=== PATIENT | male | born 1955 | race Caucasian/White ===

== ENCOUNTER 2022-05-06 10:37 | Inpatient (IN) | payer OTHER ==
[2022-05-06 11:30] LABS: #Eosinphils 0.1 thou/uL (0.0-0.7); #Lymphocytes 1.1 thou/uL (1.20-3.40); #Monocytes 0.4 thou/uL (0.11-0.59); #Neutrophils 2.8 thou/uL (1.40-6.50); %Basophils 0.1 % (0.0-1.0); %Eosinophils 2.5 % (0.0-10.0); %Lymphocytes 24.4 % (21.0-51.0); %Monocytes 9.7 % (0.0-10.0); %Neutrophils 63.4 % (42.0-75.0); Hemoglobin 12.9 g/dL (14.0-18.0); Mean Corpuscular HGB CONC 33.2 g/dL (32.0-36.0); Mean Corpuscular Hemoglobin 31.7 pg (27.0-31.0); Mean Corpuscular Volume 95.7 fL (78.0-98.0); Mean Platelet Volume 6.1 fL (7.4-10.4); Platelet Count 366 thou/uL (130-400); Red Blood Cell (RBC) Count 4.06 mill/uL (4.70-6.10); White Blood Cell (WBC) Count 4.4 thou/uL (4.8-10.8)
[2022-05-06 11:45] LABS: ALT (SGPT) 22 U/L (8-55); AST (SGOT) 22 U/L (5-34); Albumin 4.2 g/dL (3.4-4.8); Alkaline Phosphatase 89 U/L (40-110); Anion Gap 18 mmol/L (10-20); BUN (Urea Nitrogen) 5 mg/dL (8.4-25.7); Bilirubin, Total 0.6 mg/dL (0.2-1.2); Calc. Creatinine Clearance 0 mL/min (70-130); Calcium 9.6 mg/dL (7.8-10.44); Carbon Dioxide 22 mmol/L (23-31); Chloride 89 mmol/L (98-107); Estimated GFR 99; Globulin 3.7 g/dL (2.4-3.5); Glucose 217 mg/dL (80-115); Potassium 3.2 mmol/L (3.5-5.1); Protein, Total 7.9 g/dL (5.8-8.1); Sodium 126 mmol/L (136-145)
[2022-05-06] MEDS ORDERED: Aspirin Chewable 81 MG TAB ONE (13:09)
[2022-05-06] MEDS ORDERED: Nitroglycerin 0.4 MG TAB (25 Tab Bottle) SL PRN (13:36)
[2022-05-06] MEDS ORDERED: Acetaminophen 325 MG TAB PO PRN (13:42)
[2022-05-06 14:30] LABS: Hemoglobin A1c 5.6 % (4.0-6.0)
[2022-05-06 14:38] LABS: Troponin I 0.025 ng/mL (< 0.028)
[2022-05-06 14:39] LABS: Anion Gap 15 mmol/L (10-20); BUN (Urea Nitrogen) 4 mg/dL (8.4-25.7); Calc. Creatinine Clearance 0 mL/min (70-130); Calcium 9.4 mg/dL (7.8-10.44); Carbon Dioxide 26 mmol/L (23-31); Chloride 91 mmol/L (98-107); Estimated GFR 103; Glucose 87 mg/dL (80-115); Potassium 3.7 mmol/L (3.5-5.1); Sodium 128 mmol/L (136-145)
[2022-05-06] MEDS ORDERED: Polyethylene Glycol 3350 17 GM Packet PO SCH (15:00)
[2022-05-06 16:17] LABS: SARS-CoV-2 NAA Rapid Test Not Detected (NotDetected)
[2022-05-06] MEDS ORDERED: hydrALAZINE 20 MG/ML VIAL SLOW IVP PRN (17:37)
[2022-05-06 17:47] LABS: Troponin I 0.025 ng/mL (< 0.028)
[2022-05-06 17:50] VITALS: BMI 24.5
[2022-05-06] MEDS: Zolpidem Tartrate 5 MG TAB PO SCH ×2 (19:36→23:48)
[2022-05-06 20:45] LABS: Anion Gap 16 mmol/L (10-20); BUN (Urea Nitrogen) 11 mg/dL (8.4-25.7); Calc. Creatinine Clearance 97 mL/min (70-130); Calcium 9.2 mg/dL (7.8-10.44); Carbon Dioxide 24 mmol/L (23-31); Chloride 91 mmol/L (98-107); Estimated GFR 100; Glucose 83 mg/dL (80-115); Potassium 3.8 mmol/L (3.5-5.1); Sodium 127 mmol/L (136-145)
[2022-05-06] MEDS ORDERED: Acetaminophen 500 MG TAB PO SCH (23:30)
[2022-05-06] MEDS ORDERED: Zolpidem Tartrate 5 MG TAB PO SCH (23:45)
[2022-05-07 05:03] LABS: ALT (SGPT) 19 U/L (8-55); AST (SGOT) 20 U/L (5-34); Albumin 3.7 g/dL (3.4-4.8); Alkaline Phosphatase 78 U/L (40-110); Anion Gap 16 mmol/L (10-20); BUN (Urea Nitrogen) 7 mg/dL (8.4-25.7); Bilirubin, Total 0.5 mg/dL (0.2-1.2); Calc. Creatinine Clearance 104 mL/min (70-130); Calcium 9.2 mg/dL (7.8-10.44); Carbon Dioxide 23 mmol/L (23-31); Cardiac Risk 3.5 (Less than 4.5); Chloride 93 mmol/L (98-107); Cholesterol 138 mg/dl (< 200 Desired); Estimated GFR 103; Globulin 3.3 g/dL (2.4-3.5); Glucose 109 mg/dL (80-115); HDL Cholesterol 39 mg/dL (>60 Neg Risk); LDL Cholesterol, Calculated 80 mg/dL; Potassium 3.2 mmol/L (3.5-5.1); Sodium 129 mmol/L (136-145); Triglycerides 96 mg/dL (Less than 150)
[2022-05-07 06:10] LABS: Eosinophils 2 % (0-10); Hemoglobin 11.8 g/dL (14.0-18.0); Lymphocytes 44 % (21-51); MDiff Complete? YES; Mean Corpuscular HGB CONC 34.2 g/dL (32.0-36.0); Mean Corpuscular Volume 96.5 fL (78.0-98.0); Mean Platelet Volume 6.2 fL (7.4-10.4); Monocytes 11 % (0-10); Neutrophil 43 % (42-75); Platelet Count 330 thou/uL (130-400); Platelet Morphology Comment Appears Adequate; RBC Morphology Normal; Red Blood Cell (RBC) Count 3.58 mill/uL (4.70-6.10)
[2022-05-07] MEDS ORDERED: Hydrochlorothiazide 25 MG TAB PO SCH (09:00)
[2022-05-07] MEDS ORDERED: Losartan 25 MG TAB PO SCH (09:00)
[2022-05-07] MEDS: Polyethylene Glycol 3350 17 GM Packet PO SCH (10:20)
[2022-05-07] MEDS: Atorvastatin Calcium 10 MG TAB PO SCH (10:20)
[2022-05-07] MEDS: Aspirin Chewable 81 MG TAB PO SCH (10:20)
[2022-05-07] MEDS: Enoxaparin Sodium 40 MG/0.4 ML SYRINGE SC SCH (10:21)
[2022-05-07] MEDS ORDERED: Regadenoson 0.4 MG/5 ML SYRINGE ONE (10:36)
[2022-05-07] MEDS ORDERED: Potassium Chloride 20 MEQ TAB PO SCH (10:45)
[2022-05-07] MEDS ORDERED: Gabapentin 300 MG CAP PO SCH (12:15)
[2022-05-07] MEDS: Amlodipine 10 MG TAB PO SCH ×2 (13:10→13:41)
[2022-05-07] MEDS: Gabapentin 300 MG CAP PO SCH ×2 (16:24→20:08)
[2022-05-07 16:51] LABS: Amphetamine Not Detected (NotDetected); Barbiturates Screen Not Detected (NotDetected); Benzodiazepine Screen Not Detected (NotDetected); Cocaine Metabolite Screen Not Detected (NotDetected); Methadone Not Detected (NotDetected); Methamphetamine Not Detected (NotDetected); Opiate Screen Not Detected (NotDetected); Oxycodone Screen Not Detected (NotDetected); Phencyclidine (PCP) Not Detected (NotDetected); THC/Cannabinoid Screen Not Detected (NotDetected); Tricyclic Screen Not Detected (NotDetected)
[2022-05-07] MEDS: Acetaminophen 500 MG TAB PO PRN (19:22)
[2022-05-07] MEDS: Zolpidem Tartrate 5 MG TAB PO SCH (20:09)
[2022-05-08] MEDS: Acetaminophen 500 MG TAB PO PRN (03:52)
[2022-05-08 07:51] LABS: Hemoglobin 12.5 g/dL (14.0-18.0); Mean Corpuscular HGB CONC 33.3 g/dL (32.0-36.0); Mean Corpuscular Hemoglobin 32.7 pg (27.0-31.0); Mean Corpuscular Volume 98.1 fL (78.0-98.0); Platelet Count 358 thou/uL (130-400); Red Blood Cell (RBC) Count 3.82 mill/uL (4.70-6.10)
[2022-05-08 08:07] LABS: Anion Gap 14 mmol/L (10-20); BUN (Urea Nitrogen) 4 mg/dL (8.4-25.7); Calc. Creatinine Clearance 96 mL/min (70-130); Calcium 9.2 mg/dL (7.8-10.44); Carbon Dioxide 25 mmol/L (23-31); Chloride 92 mmol/L (98-107); Estimated GFR 100; Glucose 142 mg/dL (80-115); Potassium 3.7 mmol/L (3.5-5.1); Sodium 127 mmol/L (136-145)
[2022-05-08] MEDS ORDERED: Amlodipine 5 MG TAB PO SCH ×2 (09:00→10:30)
[2022-05-08] MEDS ORDERED: Sodium Chloride 0.9% 500 ML IV SCH (10:15)
[2022-05-08] MEDS: Gabapentin 300 MG CAP PO SCH ×3 (10:51→19:51)
[2022-05-08] MEDS: Atorvastatin Calcium 10 MG TAB PO SCH (10:51)
[2022-05-08] MEDS: Enoxaparin Sodium 40 MG/0.4 ML SYRINGE SC SCH (10:52)
[2022-05-08] MEDS: Aspirin Chewable 81 MG TAB PO SCH (10:54)
[2022-05-08] MEDS: Polyethylene Glycol 3350 17 GM Packet PO SCH (10:54)
[2022-05-08] MEDS ORDERED: Zolpidem Tartrate 5 MG TAB PO SCH (20:15)
[2022-05-09] MEDS ORDERED: Vicks VapoRub 50 gm Jar TOP PRN (03:32)
[2022-05-09 07:03] LABS: Anion Gap 14 mmol/L (10-20); BUN (Urea Nitrogen) 6 mg/dL (8.4-25.7); Calc. Creatinine Clearance 108 mL/min (70-130); Calcium 9.4 mg/dL (7.8-10.44); Carbon Dioxide 25 mmol/L (23-31); Chloride 95 mmol/L (98-107); Estimated GFR 104; Glucose 98 mg/dL (80-115); Potassium 4.7 mmol/L (3.5-5.1); Sodium 129 mmol/L (136-145)
[2022-05-09] MEDS ORDERED: Amlodipine 5 MG TAB PO SCH (09:00)
[2022-05-09] MEDS: Atorvastatin Calcium 10 MG TAB PO SCH (10:53)
[2022-05-09] MEDS: Gabapentin 300 MG CAP PO SCH ×3 (10:54→21:15)
[2022-05-09] MEDS: Aspirin Chewable 81 MG TAB PO SCH (10:54)
[2022-05-09] MEDS: Enoxaparin Sodium 40 MG/0.4 ML SYRINGE SC SCH (10:55)
[2022-05-09] MEDS: Polyethylene Glycol 3350 17 GM Packet PO SCH (10:56)
[2022-05-09] MEDS: Zolpidem Tartrate 5 MG TAB PO SCH (21:15)
[2022-05-10 06:59] LABS: Anion Gap 12 mmol/L (10-20); BUN (Urea Nitrogen) 6 mg/dL (8.4-25.7); Calc. Creatinine Clearance 99 mL/min (70-130); Calcium 9.4 mg/dL (7.8-10.44); Carbon Dioxide 26 mmol/L (23-31); Chloride 97 mmol/L (98-107); Estimated GFR 101; Glucose 107 mg/dL (80-115); Potassium 4.3 mmol/L (3.5-5.1); Sodium 131 mmol/L (136-145)
[2022-05-10] MEDS: Atorvastatin Calcium 10 MG TAB PO SCH (09:23)
[2022-05-10] MEDS: Enoxaparin Sodium 40 MG/0.4 ML SYRINGE SC SCH (09:23)
[2022-05-10] MEDS: Aspirin Chewable 81 MG TAB PO SCH (09:23)
[2022-05-10] MEDS: Gabapentin 300 MG CAP PO SCH ×3 (09:24→21:24)
[2022-05-10] MEDS: Acetaminophen 500 MG TAB PO PRN (09:25)
[2022-05-10] MEDS: Polyethylene Glycol 3350 17 GM Packet PO SCH (09:26)
[2022-05-10] MEDS ORDERED: Lidocaine 5% Patch TD SCH (18:00)
[2022-05-10] MEDS: Zolpidem Tartrate 5 MG TAB PO SCH (21:25)
[2022-05-11] MEDS: Acetaminophen 500 MG TAB PO PRN (05:09)
[2022-05-11] MEDS ORDERED: Transdermal Patch Removal TOP SCH (06:00)
[2022-05-11 06:43] LABS: Hemoglobin 11.6 g/dL (14.0-18.0); Mean Corpuscular HGB CONC 33.2 g/dL (32.0-36.0); Mean Corpuscular Hemoglobin 32.4 pg (27.0-31.0); Mean Corpuscular Volume 97.3 fL (78.0-98.0); Mean Platelet Volume 5.9 fL (7.4-10.4); Platelet Count 295 thou/uL (130-400); Red Blood Cell (RBC) Count 3.57 mill/uL (4.70-6.10); White Blood Cell (WBC) Count 9.1 thou/uL (4.8-10.8)
[2022-05-11 07:01] LABS: Anion Gap 14 mmol/L (10-20); BUN (Urea Nitrogen) 7 mg/dL (8.4-25.7); Calc. Creatinine Clearance 108 mL/min (70-130); Calcium 8.9 mg/dL (7.8-10.44); Carbon Dioxide 23 mmol/L (23-31); Chloride 94 mmol/L (98-107); Estimated GFR 103; Glucose 103 mg/dL (80-115); Potassium 4.1 mmol/L (3.5-5.1); Sodium 127 mmol/L (136-145)
[2022-05-11 07:58] VITALS: BP 116/76; TEMP 98.1
[2022-05-11] MEDS: Atorvastatin Calcium 10 MG TAB PO SCH (09:15)
[2022-05-11] MEDS: Gabapentin 300 MG CAP PO SCH (09:15)
[2022-05-11] MEDS: Aspirin Chewable 81 MG TAB PO SCH (09:15)
[2022-05-11] MEDS: Polyethylene Glycol 3350 17 GM Packet PO SCH (09:16)
[2022-05-11] MEDS: Enoxaparin Sodium 40 MG/0.4 ML SYRINGE SC SCH (09:16)
== END 2022-05-11 11:05 | disposition short-term general hospital (02) | DRG 307 ==
LOC: ERS 10:37 → ERHOLD 13:05 → 2NO 15:55 → OBSVTOIN 05-08 12:43
PROVIDERS: ADMIT Family Medicine; ATTEND Family Medicine
DX: I35.0 Nonrheumatic aortic (valve) stenosis (principal); E87.1 Hypo-osmolality and hyponatremia; I20.0 Unstable angina; E87.6 Hypokalemia; I11.0 Hypertensive heart disease with heart failure; I50.9 Heart failure, unspecified; K59.00 Constipation, unspecified; R73.9 Hyperglycemia, unspecified; I44.7 Left bundle-branch block, unspecified; I44.0 Atrioventricular block, first degree; F17.210 Nicotine dependence, cigarettes, uncomplicated; G62.9 Polyneuropathy, unspecified; Z79.899 Other long term (current) drug therapy; Z98.890 Other specified postprocedural states
CPT/HCPCS: 36415; 71045; 78452; 80048; 80053; 80061; 80306; 83036; 83880; 83930; 83935; 84300; 84443; 84484; 85025; 85027; 93005; 93017; 93306; 94760; 96372; A9500; G0378; J1650; J2785; J7030; U0002